=== PATIENT | female | born 1940 | race Caucasian/White ===

== ENCOUNTER 2017-10-13 08:01 | Day surgery (SDC) | payer MEDICARE, OTHER ==
[~2017-10-13 08:01] MED LIST: Lactated Ringers 1,000 ML IV SCH; Sodium Chloride 0.9% 10 ML Syringe FLUSH PRN; ceFAZolin 1 GM in Premix Bag 1 BAG IV ONE
[2017-10-13] MEDS ORDERED: Ondansetron 4 MG/2 ML SDV IV ONE (08:02)
[2017-10-13] MEDS ORDERED: Midazolam 1 MG/ML 2 ML SDV IV ONE (08:02)
[2017-10-13] MEDS ORDERED: Bupivacaine 0.5% 10 ML SDV INJECT ONE ×3 (08:02→11:17)
[2017-10-13] MEDS ORDERED: Lidocaine 1% 30 ML SDV INJECT ONE ×3 (08:02→11:17)
[2017-10-13] MEDS ORDERED: Propofol 200 MG/20 ML SDV IV ONE (08:02)
[2017-10-13] MEDS ORDERED: fentaNYL 100 MCG/2 ML SDV IV ONE (08:02)
[2017-10-13] MEDS ORDERED: Bupivacaine 0.5% 10 ML SDV ONE (10:08)
[2017-10-13] MEDS ORDERED: Lidocaine 1% 30 ML SDV ONE (10:08)
--- NOTE | 2017-10-13 11:57 | PCM.OPNOTE ---
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 TT 28 mins. Well padded compression dressing and cam boot applied.
[2017-10-13 14:03] VITALS: BP 159/76
--- NOTE | 2017-10-14 12:31 | OR ---
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 PROCEDURE PERFORMED: Right foot 4th and 5th digits extensor tendon lengthening. ANESTHESIA: Local MAC with preoperative local block of 10 mL of 1:1 mixture of 1% lidocaine plain and 0.5% Marcaine plain. TOURNIQUET TIME: 28 minutes of pneumatic ankle tourniquet. ESTIMATED BLOOD LOSS: Minimal. SPECIMEN: None. COMPLICATIONS: None. INDICATIONS: Rosaura is a 76-year-old female who presents with pain in the toes of her right foot. She states that the 4th and 5th toes on the right foot stick straight up and cause pain and issues when she is trying to wear any type of shoe. She had knee surgery few years ago, developed a knot in the back of her knee, and one day, she said she felt a pop in the area and her toes started to stick up after that incident. She has tried multiple different shoes, toe splints, and cushioning with no relief. Pain is 9/10 with pressure and shoe wear. She is still able to actively flex those digits 4 and 5, mostly at the distal interphalangeal joint. X-rays reveal extension at the MTPJs 4 and 5 of the right foot, no signs of fracture. The patient voiced good understanding of the proposed procedure and possible complications and elects to have surgery at this time. DESCRIPTION OF THE PROCEDURE: The patient was taken to the operating room, lying in supine position. After adequate anesthesia induction as described above, the right foot was prepped and draped in the usual sterile fashion. A pneumatic ankle tourniquet was inflated to 225 mmHg. Attention was then directed to the dorsal aspect of the right foot where an approximately 4 cm curvilinear incision was made overlying both the 4th and the 5th digits. Sharp and blunt dissections were performed down to the level of the long extensor tendon of digits 4 and 5. The tendon was lengthened in a Z-fashion at the 4th and 5th digits, so that they were in good alignment with the 2nd and 3rd digits, but she was still able to extend the toes for walking. The area was then irrigated with copious amounts of sterile saline. Simulated weightbearing was performed and the digits aligned well and were not floppy. The area was irrigated with copious amounts of sterile saline. Deep closure was completed with 3-0 Vicryl and the skin closure was performed with 4-0 nylon. The tendons had been repaired with a 3-0 Vicryl as well. The area was dressed with Xeroform to the incision site, fluffs, Webril, and a well-padded compression dressing. She tolerated anesthesia and the procedure well and was transported to the recovery room with vital signs stable and vascular status intact as noted by immediate hyperemia to digits upon deflation of the ankle tourniquet. The patient was then discharged home when she met hospital discharge requirements. [facility] /[id number]
== END 2017-10-13 12:27 | disposition home or self-care (01) ==
LOC: DL.SDS 08:01
PROVIDERS: ATTEND Podiatrist
DX: M20.61 Acquired deformities of toe(s), unspecified, right foot (principal); E11.9 Type 2 diabetes mellitus without complications; E78.5 Hyperlipidemia, unspecified; F41.9 Anxiety disorder, unspecified; Z88.8 Allergy status to other drugs, medicaments and biological substances; Z79.2 Long term (current) use of antibiotics; Z79.899 Other long term (current) drug therapy
CPT/HCPCS: 01470; 28234; J0690; J2250; J2405; J2704; J3010; J7120

== ENCOUNTER 2018-02-09 06:53 | Day surgery (SDC) | payer MEDICARE, OTHER ==
[~2018-02-09 06:53] MED LIST changes: -ceFAZolin 1 GM in Premix Bag 1 BAG IV ONE
[2018-02-09] MEDS ORDERED: Ondansetron 4 MG/2 ML SDV IV ONE (06:54)
[2018-02-09] MEDS ORDERED: Lidocaine 1% 30 ML SDV ONE ×2 (06:54→06:58)
[2018-02-09] MEDS ORDERED: Midazolam 1 MG/ML 2 ML SDV IV ONE (06:54)
[2018-02-09] MEDS ORDERED: Propofol 200 MG/20 ML SDV IV ONE (06:54)
[2018-02-09] MEDS ORDERED: fentaNYL 100 MCG/2 ML SDV IV ONE (06:54)
[2018-02-09] MEDS ORDERED: Dexamethasone 4 MG/ML SDV IV ONE (06:54)
[2018-02-09] MEDS ORDERED: Bupivacaine 0.5% 30 ML SDV INJECT ONE ×3 (06:54→09:00)
[2018-02-09] MEDS ORDERED: Bupivacaine 0.5% 30 ML SDV ONE (06:58)
[2018-02-09] MEDS ORDERED: ceFAZolin 1 GM in Premix Bag 1 BAG IV ONE (07:00)
[2018-02-09] MEDS ORDERED: Lidocaine 1% 30 ML SDV INJECT ONE ×2 (08:35→09:00)
[2018-02-09] MEDS ORDERED: Albuterol/Ipratropium 3.0-0.5 MG/3 ML Neb Soln NEB ONE (09:33)
[2018-02-09] MEDS ORDERED: Albuterol 0.083% 2.5 MG/3 ML Neb Soln NEB ONE (09:38)
--- NOTE | 2018-02-09 09:53 | PCM.OPNOTE ---
- General Post-Op/Procedure Note Date of Surgery/Procedure: 02/09/18 Operative Procedure(s): left foot 5th digit derotational arthroplasty Pre Op Diagnosis: left foot painful hammertoe with corn Post-Op Diagnosis: berkley Anesthesia Technique: Local, MAC Primary Surgeon: Tracie Caceres Anesthesia Provider: Servando Maurer EBL in mLs: 10 Condition: Good Free Text/Narrative:: Pt tolerated procedure well and was transported to recovery with vascular status intact to left foot. No tourniquet used. Well padded compression dressing applied.
--- NOTE | 2018-02-09 10:16 | CR ---
Clinical history: 77-year-old postoperative (foot surgery) patient with "wheezing". Interpretation: No acute new cardiopulmonary abnormality since 28 June 2017 preoperative exam. Normal cardiac silhouette without cephalization of vascular flow, signs of alveolar edema or dependen t effusion. No new lung mass, hilar lymphadenopathy or focal lobar pneumonia. No atelectasis/collapse. No pneumothorax.
[2018-02-09 11:19] VITALS: BP 117/89
--- NOTE | 2018-02-09 12:48 | OR ---
DATE: 02/09/2018 PREOPERATIVE DIAGNOSIS: Left foot fifth digit hammertoe with painful corn. POSTOPERATIVE DIAGNOSIS: Left foot fifth digit hammertoe with painful corn. PROCEDURE PERFORMED: Left foot fifth digit derotational arthroplasty. ANESTHESIA: Local MAC with preoperative local block of 10 mL 1:1 mixture of 1% lidocaine plain and 0.5% Marcaine plain. TOURNIQUET TIME: One minute and then it was let down for the remainder of the case. ESTIMATED BLOOD LOSS: Minimal. SPECIMEN: None. COMPLICATIONS: None. INDICATIONS: Rosaura Pardo is a 77-year-old female who presents with painful corn between her fourth and fifth toes on the left foot. I have debrided this corn many times for her in the past. She is sick of having to deal with the corn as it grows back very quickly. She does wear a toe spacer, but that really does not seem to help. She would like the toe fixed. I did surgery on her right foot last year, and she has healed well from that. 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 There is a prominent condyle on the distal phalanx of that fifth toe. The patient voiced good understanding of the proposed procedure and possible complications, elects to have surgery at this time. DESCRIPTION OF PROCEDURE: The patient was taken to the operating room lying in supine position. After adequate anesthesia induction as described above, the left foot was prepped and draped in the usual sterile fashion. A pneumatic ankle tourniquet was inflated to 225 mmHg, however, it did not seem to be controlling the blood flow, and it was like a venous tourniquet, so I left that down after 1 minute. Attention was then directed to the left foot dorsal aspect of the fifth proximal interphalangeal joint, where a semi-elliptical incision was made in the angulated fashion, so that when it is closed, it will help straighten the toe. The dorsal skin and subcutaneous tissue were removed. A dorsal tenotomy capsulotomy was performed, and the tissues were freed from the head of the proximal phalanx. A sagittal saw was then used to resect the head of the proximal phalanx of the fifth toe. Position of the toe revealed adequate bone resection. A Barrett was used to free to the area of the prominent condyle on the distal phalanx. A bone rasp was used at this area, and this was rasped down. There was no prominence remaining with palpation. It was noted at this time that it was not going to be rubbing on the fourth toe, so I did not do any procedure to the fourth toe. She does not have a hammertoe at that fourth toe, and the x-rays appear straight. The area was then irrigated with copious amounts of sterile saline. The tendon was closed with 3-0 Vicryl, and skin closure was completed with 4-0 nylon with the toe in a straight rectus position. The area was then dressed with Xeroform to the incision site, fluffs, Webril, and Jack wrap. She tolerated the procedure and anesthesia well and left the operating room for recovery with vital signs stable in good condition, vascular status intact to the left foot as noted by immediate hyperemia to the digit at the end of the case. Tourniquet time was only 1 minute. She was discharged home when she met hospital discharge requirements. [facility] /[id number]
== END 2018-02-09 10:39 | disposition home or self-care (01) ==
LOC: DL.SDS 06:53
PROVIDERS: ATTEND Podiatrist
DX: M20.42 Other hammer toe(s) (acquired), left foot (principal); E11.9 Type 2 diabetes mellitus without complications; M79.7 Fibromyalgia; M19.90 Unspecified osteoarthritis, unspecified site; F41.9 Anxiety disorder, unspecified; E78.2 Mixed hyperlipidemia; Z90.89 Acquired absence of other organs; Z90.49 Acquired absence of other specified parts of digestive tract; Z88.6 Allergy status to analgesic agent; Z88.8 Allergy status to other drugs, medicaments and biological substances; Z88.5 Allergy status to narcotic agent
CPT/HCPCS: 28285; 71045; J0690; J1100; J2250; J2405; J2704; J3010; J7120; J7620; 01480

== ENCOUNTER 2022-05-16 11:48 | Emergency (ER) | payer MEDICARE ==
[2022-05-16] MEDS ORDERED: Nitrofurantoin Monohydrate/Macrocrystalline 100 MG Cap PO ONE ×2 (11:49→15:07)
[2022-05-16 12:09] VITALS: BP 170/94; PULSE 66
[2022-05-16] MEDS ORDERED: Sodium Chloride 0.9% 1,000 ML IV ONE (12:42)
[2022-05-16] MEDS ORDERED: Sodium Chloride 0.9% 10 ML Syringe FLUSH PRN (12:42)
[2022-05-16 13:08] LABS: CHLORIDE,CL 105 mmol/L (98-107); SODIUM,NA 142 mmol/L (136-145)
[2022-05-16 13:18] LABS: ESTIMATED GFR 68 mL/min (>=60)
[2022-05-16 13:22] LABS: CORONAVIRUS COVID-19 NAA NEGATIVE (NEGATIVE)
[2022-05-16 14:59] LABS: AMPHETAMINES,URINE NEGATIVE (NEGATIVE); BARBITURATES,URINE NEGATIVE (NEGATIVE); BENZODIAZEPINE,URINE NEGATIVE (NEGATIVE); MDMA (ECSTASY), URINE NEGATIVE (NEGATIVE); METHADONE,URINE NEGATIVE (NEGATIVE); METHAMPHETAMINES,URINE NEGATIVE (NEGATIVE); OPIATES,URINE NEGATIVE (NEGATIVE); OXYCODONE,URINE NEGATIVE (NEGATIVE); PHENCYCLIDINE,URINE NEGATIVE (NEGATIVE); TCA,URINE NEGATIVE (NEGATIVE)
[2022-05-16] MEDS ORDERED: Nitrofurantoin Monohydrate/Macrocrystalline 100 MG Cap ONE (15:17)
== END 2022-05-16 15:28 | disposition home or self-care (01) ==
LOC: DL.ED 11:48
DX: N30.01 Acute cystitis with hematuria (principal); I10 Essential (primary) hypertension; E11.40 Type 2 diabetes mellitus with diabetic neuropathy, unspecified; E66.9 Obesity, unspecified; Z68.32 Body mass index [BMI] 32.0-32.9, adult; Z88.6 Allergy status to analgesic agent; Z88.8 Allergy status to other drugs, medicaments and biological substances; Z88.1 Allergy status to other antibiotic agents; Z79.899 Other long term (current) drug therapy; Z90.49 Acquired absence of other specified parts of digestive tract; Z20.822 Contact with and (suspected) exposure to COVID-19
CPT/HCPCS: 0240U; 36415; 71045; 80053; 80305; 80307; 81001; 83605; 83880; 84443; 84484; 85025; 87086; 87088; 87186; 93005; 96360; 99285; A9270; J3490; J7030

== ENCOUNTER 2023-01-21 20:16 | Emergency (ER) | payer MEDICARE, OTHER ==
[2023-01-21 20:13] VITALS: BP 124/65; PULSE 130
[~2023-01-21 20:16] MED LIST changes: -Lactated Ringers 1,000 ML IV SCH; +Loperamide 2 MG Cap PO ONE; +Ondansetron 4 MG/2 ML SDV IVPUSH ONE; +Sodium Chloride 0.9% 1,000 ML IV SCH; +traMADol 50 MG Tab PO ONE
[2023-01-21 20:29] LABS: ANION GAP 16.7 mEq/L (7-13)
[2023-01-21] MEDS ORDERED: Acetaminophen 500 MG Tab PO ONE (20:36)
[2023-01-21] MEDS ORDERED: Piperacillin/Tazobactam 4.5 GM in Sodium Chloride 0.9% 100 ML IV ONE (20:39)
[2023-01-21] MEDS ORDERED: Ciprofloxacin in D5W 400 MG in Premix Bag 1 BAG IV ONE ×2 (20:39)
[2023-01-21] MEDS ORDERED: Sodium Chloride 0.9% 1,000 ML IV SCH (20:45)
[2023-01-21] MEDS ORDERED: Potassium Chloride 10 MEQ Tab.ER PO ONE (23:41)
[2023-01-21] MEDS ORDERED: NS with KCl 40mEq 1,000 ML IV SCH (23:45)
== END 2023-01-22 02:43 ==
LOC: DL.ED 20:16
DX: A41.9 Sepsis, unspecified organism (principal); N30.01 Acute cystitis with hematuria; R65.20 Severe sepsis without septic shock; N13.1 Hydronephrosis with ureteral stricture, not elsewhere classified; E83.42 Hypomagnesemia; E87.6 Hypokalemia; E86.0 Dehydration; R00.0 Tachycardia, unspecified; E78.00 Pure hypercholesterolemia, unspecified; I10 Essential (primary) hypertension; M19.90 Unspecified osteoarthritis, unspecified site; E11.40 Type 2 diabetes mellitus with diabetic neuropathy, unspecified; E66.9 Obesity, unspecified; Z68.32 Body mass index [BMI] 32.0-32.9, adult; Z88.8 Allergy status to other drugs, medicaments and biological substances; Z88.1 Allergy status to other antibiotic agents; Z88.5 Allergy status to narcotic agent; Z79.82 Long term (current) use of aspirin; Z79.899 Other long term (current) drug therapy
CPT/HCPCS: 36415; 71045; 74176; 80053; 81001; 82947; 83605; 83690; 83735; 84145; 84484; 85025; 86140; 87040; 87077; 87186; 93005; 96361; 96365; 96367; 96375; 99291; 99292; A9270; J0744; J2405; J2543; J3480; J3490; J7030